=== PATIENT | female | born 1950 | race Caucasian/White ===

== ENCOUNTER → 2022-04-10 | Outpatient (CLI) | payer MEDICARE, OTHER ==
[~2022-04-10] MED LIST: CALC-104 PO; MULT-245 PO; ZOLP5TAB5 PO
--- NOTE | 2022-04-10 12:29 | PDOC1 ---
INITIAL PAIN CONSULT DATE OF SERVICE: DOS: DATE: 04/10/22 TIME: 12:22 CHIEF COMPLAINT: Chief Complaint: Low back and bilateral lower extremity pain HISTORY OF PRESENT ILLNESS: 71-year-old female presents with complaints of low back bilateral lower extremity pain left greater than right for about 2 years not the full of any specific injury or accident but started after a long car ride to [place] and back with pain noticeable after that in the low back and bilateral lower extremities patient reports is intermittent does not always present but is significant when it is patient reports is worse with walking standing changing positions generally does not awaken her from sleep denies better with sitting or lying down patient reports intermittent in intensity but is sharp and aching in the back and can be throbbing and dull as well as aching in the hips as well in the posterior gluteus and thighs but rarely radiating to the legs patient rates her disability rating is 1 on a scale of 10 with family home responsibilities and recreation 0 and all other categories. Patient is taking Aleve intermittently which helps by about 50% also she is doing physical therapy currently and doing exercise at home and at her gym patient reports all these been helping the pain to moderate extent patient reports no bowel or bladder control no difficulty with walking although it does become worse with walking she is not needing any assistive devices to ambulate. Patient reports that sitting or standing for more than 45 minutes to an hour or more promotes the pain as well as walking with a backpack with about 5 to 10 pounds and it can exacerbate the pain as well. Patient had an MRI scan of the lumbar spine showing multilevel degenerative processes and bulging disc with grade 1 degenerative anterolisthesis at L4-5 with moderate foraminal narrowing at that level bilateral foraminal stenosis and spinal stenosis at that level with L5-S1 showing degenerative changes resulting in moderate bilateral foraminal narrowing and narrowing of the lateral recesses as well. Patient reports no loss of motor function but significant fatigability lower extremities with extended standing walking again worse on the left than the right. Patient reports no bowel or bladder incontinence. PAST MEDICAL HISTORY: PMH: Arthritis PREVIOUS SURGERIES: Past Surgical Hx: Hysterectomy, right total knee arthroplasty, vein stripping, bilateral cataract extraction CURRENT MEDICATIONS: Current Meds: Active Scripts Medications Dose Route/Sig Max Daily Dose Days Date Category Multi Vitamin Daily (Multivitamin) 1 Each Tablet 1 Tab PO DAILY 30 04/10/22 Reported Citracal + D Maximum Caplet (Calcium Citrate/Vitamin D3) 1 Each Tablet 1 Each PO DAILY 04/10/22 Reported Zolpidem Tartrate 5 Mg Tablet 10 Mg PO PRN QHS PRN 04/10/22 Reported FAMILY HISTORY: Family Hx: Varicose veins SOCIAL HISTORY: Social Hx: Patient drinks wine about 48 ounces once to twice a week does not smoke not use any illegal illicit recreational drugs is lives with her spouse is currently retired and lives in [facility]. REVIEW OF SYSTEMS: ROS: Positive for those items mentioned in history of present illness, all systems are reviewed, otherwise negative ,and are complete full and well-documented on patient's chart. PHYSICAL EXAM: VS: Blood pressure is 144/89 pulse 53 respirations 20 temperature is 97.1 degrees Fahrenheit height is 5 feet 6 inches weight is 165 pounds. PE: PHYSICAL EXAMINATION: GENERAL: The patient is awake, alert, oriented, appropriate, very pleasant in demeanor HEENT: Shows normocephalic, atraumatic. Extraocular movements are intact and symmetrical. Oral cavity: Mucous membranes moist and pink. Dentition is intact. NECK: Shows anterior throat supple without palpable lymphadenopathy noted. Swallow reflex symmetrical. CHEST: Shows normal on inspection. Breath sounds are clear bilaterally, no rales rhonchi or wheezes auscultated. HEART: Shows S1, S2 clear. No murmurs auscultated. ABDOMEN: Soft, nontender, nondistended. No palpable organomegaly is noted. BACK: Shows spine grossly in the midline. Normal-appearing cervical lordotic curvature. There is slightly increased thoracic kyphosis, some minor flattening of the lumbar lordotic curvature. Lumbar paraspinous muscles show symmetrical on inspection, on palpation shows some moderate tenderness diffusely throughout the upper, middle and lower distribution of the paraspinous muscles bilaterally and also into the lower thoracic paraspinous musculature, firm and tender, but without specific trigger points, without radiation of pain. The patient has good rotational motion of the lumbar spine, both laterally as well as extension and flexion without significant difficulty. No tenderness over the spinous processes, sacrum or sacroiliac regions. EXTREMITIES: Lower extremities show deep tendon reflexes 2+ in the patellar and tendo calcaneus tendons. Motor exam is 5 on a scale of 5 with right dorsiflexion, extension, quadriceps and hamstring flexion and 5/5 on the left. Peripheral pulses are 1+ posterior tibial. No peripheral edema is noted bilaterally. Lower extremities are warm and dry to touch, equal in color and appearance. Straight leg raise noted to be negative bilaterally. Gaenslen's and Daniel's maneuvers are negative bilaterally as well. The patient is able to stand, stand on her toes without difficulty or loss of balance walks with a normal-appearing gait is not appear to favor the right left lower extremity significantly does not use any assistive devices to ambulate. SKIN: Shows warm and dry, good turgor. No edema. No sores, rashes or bruising throughout. IMPRESSION: Impression: 71-year-old female with approximate 2-year history of low back and bilateral lower extremity pain intermittent in intensity in a radicular fashion. MRI scan lumbar spine as noted Arthritis Plan: Options were discussed with patient including conservative medical managements continued physical therapies and interventional techniques. Patient would like to pursue the most conservative course with treatment and will continue with physical therapy at this time we discussed adding lumbar traction to her physical therapy regimen and will order such. Patient will follow-up after physical therapy is completed. DEMETRIUS CHOU MD April 10, 2022 12:29
== END | disposition home or self-care (01) ==
LOC: PNCL 10:42
PROVIDERS: ATTEND Anesthesiology
DX: M54.50 Low back pain, unspecified (principal); M79.605 Pain in left leg; M79.604 Pain in right leg; M19.90 Unspecified osteoarthritis, unspecified site; Z90.710 Acquired absence of both cervix and uterus; Z98.890 Other specified postprocedural states; Z79.899 Other long term (current) drug therapy
CPT/HCPCS: 99214; G0463